=== PATIENT | female | born 1940 | race Two or more races ===

== ENCOUNTER 2017-11-07 10:01 | Emergency (ER) | payer OTHER ==
[~2017-11-07] VITALS: Ht 152.4 cm; Wt 68.9 kg
[~2017-11-07 10:01] MED LIST: ASA81 MG; ZOCOR20 MG
== END 2017-11-07 14:53 | disposition home or self-care (01) ==
LOC: ER 10:01
DX: R51 Headache (principal); M54.2 Cervicalgia

== ENCOUNTER 2018-04-03 10:35 | Outpatient (CLI) | payer OTHER | END 2018-04-03 10:37 | disposition home or self-care (01) | LOC: RAD 10:35 | DX: Z01.811 Encounter for preprocedural respiratory examination (principal) ==

== ENCOUNTER 2018-05-07 07:10 | Outpatient (CLI) | payer OTHER | END 2018-05-07 07:12 | disposition home or self-care (01) | LOC: MAMO-SONO 07:10 | DX: Z12.31 Encounter for screening mammogram for malignant neoplasm of breast (principal); Z87.898 Personal history of other specified conditions; N64.89 Other specified disorders of breast ==

== ENCOUNTER 2018-07-21 20:36 | Emergency (ER) | payer OTHER ==
[~2018-07-21] VITALS: Ht 165.1 cm; Wt 79.4 kg
== END 2018-07-22 19:15 | disposition home or self-care (01) ==
LOC: ER 20:36 → CPU-OBS 20:48 → ER 07-22 19:15
DX: I25.10 Atherosclerotic heart disease of native coronary artery without angina pectoris (principal); I16.1 Hypertensive emergency; I10 Essential (primary) hypertension; R07.89 Other chest pain; M54.2 Cervicalgia; R51 Headache

== ENCOUNTER 2018-07-28 09:13 | Outpatient (CLI) | payer OTHER | END 2018-07-28 09:20 | disposition home or self-care (01) | LOC: SONOGRAMA 09:13 | DX: R10.84 Generalized abdominal pain (principal) ==

== ENCOUNTER → 2018-12-19 | Outpatient (CLI) | payer OTHER | END | disposition home or self-care (01) | LOC: RAD 11:08 | DX: J98.11 Atelectasis (principal); R06.02 Shortness of breath ==

== ENCOUNTER 2020-09-01 10:08 | Outpatient (CLI) | payer OTHER | END 2020-09-01 10:19 | disposition home or self-care (01) | LOC: MAMO-SONO 10:08 | PROVIDERS: ATTEND Obstetrics & Gynecology | DX: Z12.31 Encounter for screening mammogram for malignant neoplasm of breast (principal); N64.4 Mastodynia ==

== ENCOUNTER 2020-09-27 07:05 | Outpatient (CLI) | payer OTHER | END 2020-09-27 07:06 | disposition home or self-care (01) | LOC: NUCLEAR 07:05 | PROVIDERS: ATTEND Internal Medicine Cardiovascular Disease | DX: M81.0 Age-related osteoporosis without current pathological fracture (principal); I20.9 Angina pectoris, unspecified | CPT/HCPCS: 78452; 93017; 77080; A9500; J0153 ==

== ENCOUNTER 2020-11-05 06:40 | Inpatient (IN) | payer OTHER ==
[~2020-11-05] VITALS: Ht 152.4 cm; Wt 64.4 kg
[2020-11-05] MEDS ORDERED: NORFLEX100MG (06:52)
[2020-11-05] MEDS ORDERED: SOLARAZE100 GM (06:53)
[2020-11-07] MEDS ORDERED: ALLERGY RELIEF25 MG (11:13)
[2020-11-07] MEDS ORDERED: [UNRECOGNIZED DRUG - OTHER] (11:13)
[2020-11-07] MEDS ORDERED: CVS CALCIUM 601 EAC3 (11:13)
[2020-11-07] MEDS ORDERED: IBUPROFEN200 M1 (11:13)
[2020-11-07] MEDS ORDERED: MELATONIN5 M2 (11:14)
[2020-11-07] MEDS ORDERED: [UNRECOGNIZED DRUG - OTHER] (11:14)
[2020-11-07] MEDS ORDERED: CORTISONE60 GM (11:14)
[2020-11-07] MEDS ORDERED: VITAMIN D350 MCG (11:14)
[2020-11-07] MEDS ORDERED: OMEGA 3-6-9 11200 M1 (11:15)
[2020-11-07] MEDS ORDERED: PRAVASTATIN SOD10 MG (11:15)
[2020-11-07] MEDS ORDERED: ANTI-DIARRHEAL2 M1 (11:15)
[2020-11-07] MEDS ORDERED: BENADRYL ITCH28.3 GM (11:16)
== END 2020-11-09 10:55 | disposition designated cancer center or children's hospital (05) | DRG 313 ==
LOC: ER 06:40 → MEDJ 17:12
PROVIDERS: ADMIT Internal Medicine; ATTEND Internal Medicine
PROC: 4A12X4Z Monitoring of Cardiac Electrical Activity, External Approach (ICD-10-PCS; principal; 2020-11-05)
DX: R07.89 Other chest pain (principal); K29.70 Gastritis, unspecified, without bleeding; Z20.822 Contact with and (suspected) exposure to COVID-19

== ENCOUNTER 2022-01-02 09:21 | Outpatient (CLI) | payer OTHER ==
[~2022-01-02 09:21] MED LIST changes: +ALLERGY RELIEF25 MG; +ANTI-DIARRHEAL2 M1; +BENADRYL ITCH28.3 GM; +CORTISONE60 GM; +CVS CALCIUM 601 EAC3; +IBUPROFEN200 M1; +MELATONIN5 M2; +NORFLEX100MG; +OMEGA 3-6-9 11200 M1; +PRAVASTATIN SOD10 MG; +SOLARAZE100 GM; +VITAMIN D350 MCG; +[UNRECOGNIZED DRUG - OTHER]; +[UNRECOGNIZED DRUG - OTHER]
== END 2022-01-02 09:33 | disposition home or self-care (01) ==
LOC: MAMO-SONO 09:21
PROVIDERS: ATTEND Obstetrics & Gynecology
DX: Z12.31 Encounter for screening mammogram for malignant neoplasm of breast (principal); N64.4 Mastodynia

== ENCOUNTER 2022-04-24 07:14 | Outpatient (CLI) | payer OTHER | END 2022-04-24 07:30 | disposition home or self-care (01) | LOC: TOM 07:14 | PROVIDERS: ATTEND Psychiatry & Neurology Clinical Neurophysiology | DX: I62.03 Nontraumatic chronic subdural hemorrhage (principal) ==

== ENCOUNTER 2022-09-14 10:57 | Emergency (ER) | payer OTHER ==
[~2022-09-14] VITALS: Ht 152.4 cm; Wt 67.1 kg
[2022-09-14] MEDS ORDERED: ANTIVERT25 M2 PO (11:19)
== END 2022-09-14 15:46 | disposition home or self-care (01) ==
LOC: ER 10:57
DX: R42 Dizziness and giddiness (principal); M19.90 Unspecified osteoarthritis, unspecified site; J45.909 Unspecified asthma, uncomplicated; Z88.2 Allergy status to sulfonamides; K29.70 Gastritis, unspecified, without bleeding

== ENCOUNTER 2023-01-03 11:28 | Outpatient (CLI) | payer OTHER ==
[~2023-01-03 11:28] MED LIST changes: +ANTIVERT25 M2 PO
== END 2023-01-03 11:33 | disposition home or self-care (01) ==
LOC: MAMO-SONO 11:28
PROVIDERS: ATTEND Obstetrics & Gynecology
DX: Z12.31 Encounter for screening mammogram for malignant neoplasm of breast (principal); N64.4 Mastodynia

== ENCOUNTER 2023-01-18 12:09 | Outpatient (CLI) | payer OTHER | END 2023-01-18 12:19 | disposition home or self-care (01) | LOC: NUCLEAR 12:09 | PROVIDERS: ATTEND Obstetrics & Gynecology | DX: M81.0 Age-related osteoporosis without current pathological fracture (principal) ==

== ENCOUNTER 2023-01-31 11:39 | Outpatient (CLI) | payer OTHER | END 2023-01-31 11:44 | disposition home or self-care (01) | LOC: RAD 11:39 | PROVIDERS: ATTEND Ophthalmology | DX: Z98.41 Cataract extraction status, right eye (principal); H25.011 Cortical age-related cataract, right eye ==

== ENCOUNTER 2023-05-10 13:51 | Emergency (ER) | payer OTHER ==
[~2023-05-10] VITALS: Ht 152.4 cm; Wt 68.0 kg
[2023-05-10 15:40] LABS: HEMOGLOBIN 13.4 g/dL (12.0-15.00); MEAN CELL VOLUME 87.6 fL (80.00-100.00); MEAN CORPUSCULAR HEMOGLOBIN 29.4 pg (27.00-32.0); MEAN CORPUSCULAR HGB CONC 33.6 g/dl (32.0-36.0); PLATELET COUNT 236 K/uL (150-450); RED BLOOD COUNT 4.56 M/uL (4.00-6.00)
[2023-05-10 15:58] LABS: CALCIUM 9.7 mg/dL (8.5-10.1); CREATININE SERUM 0.75 mg/dL (0.55-1.02); GFR 73.98; POTASSIUM 4.76 mEq/L (3.5-5.1)
[2023-05-10 16:51] LABS: PH,URINE 6.5 (5.0-8.0); URINE APPEARANCE Clear; URINE BILIRRUBIN Negative (NEGATIVE); URINE BLOOD Negative; URINE COLOR Yellow; URINE GLUCOSE Negative (NEGATIVE); URINE LEUKOCYTE Trace; URINE NITRATE Negative; URINE PROTEIN Negative (NEGATIVE); URINE UROBILINOGEN 0.2 E.U./dl
[2023-05-10 16:52] LABS: URINE EPITHELIAL CELLS 2.4 uL (0.0-38.8)
[2023-05-10 16:54] LABS: URINE BACTERIA 3.7 uL (0.0-1933); URINE RBC 0.8 uL (0.0-20.8)
[2023-05-10] MEDS ORDERED: ESTRACE42.5 GM VAG (17:07)
== END 2023-05-10 17:19 ==
LOC: ER 13:52
PROVIDERS: Nurse Practitioner Family
DX: N95.2 Postmenopausal atrophic vaginitis (principal); R30.0 Dysuria; Z88.2 Allergy status to sulfonamides; E78.49 Other hyperlipidemia

== ENCOUNTER 2023-12-25 08:26 | Outpatient (CLI) | payer OTHER ==
[~2023-12-25 08:26] MED LIST changes: +ESTRACE42.5 GM VAG
== END 2023-12-25 08:35 | disposition home or self-care (01) ==
LOC: TOM 08:26
PROVIDERS: ATTEND Psychiatry & Neurology Clinical Neurophysiology
DX: K51.90 Ulcerative colitis, unspecified, without complications (principal)

== ENCOUNTER 2024-01-07 12:16 | Outpatient (CLI) | payer OTHER | END 2024-01-07 12:27 | disposition home or self-care (01) | LOC: MAMO-SONO 12:16 | PROVIDERS: ATTEND Obstetrics & Gynecology | DX: N64.4 Mastodynia (principal); Z12.31 Encounter for screening mammogram for malignant neoplasm of breast ==

== ENCOUNTER 2024-07-08 13:18 | Outpatient (CLI) | payer OTHER | END 2024-07-08 13:26 | disposition home or self-care (01) | LOC: TOM 13:18 | PROVIDERS: ATTEND Psychiatry & Neurology Clinical Neurophysiology | DX: R51.9 Headache, unspecified (principal) ==

== ENCOUNTER 2024-08-28 13:26 | Emergency (ER) | payer OTHER ==
[~2024-08-28] VITALS: Ht 152.4 cm; Wt 63.5 kg
[2024-08-28] MEDS ORDERED: LIDOCAINE HCL 1% 10ML VIAL PERCUT ONE (14:45)
[2024-08-28] MEDS ORDERED: CEFTRIAXONE SODIUM 1,000 MG VIAL IM ONE (14:45)
[2024-08-28] MEDS ORDERED: TETANUS & DIPHTHERIA TOX,ADULT 0.5 ML VIAL IM ONE (14:45)
[2024-08-28] MEDS ORDERED: LIDOCAINE HCL 1% 10ML VIAL ONE (15:11)
[2024-08-28] MEDS ORDERED: DIPHTH,PERTUSS(ACELL),TET VAC 0.5 ML SYRINGE IM ONE (15:12)
[2024-08-28] MEDS ORDERED: CEFTRIAXONE SODIUM 1,000 MG VIAL ONE (15:12)
== END 2024-08-28 17:46 ==
LOC: ER 13:27
DX: S01.01XA Laceration without foreign body of scalp, initial encounter (principal); W10.8XXA Fall (on) (from) other stairs and steps, initial encounter; Y93.89 Activity, other specified; Y92.89 Other specified places as the place of occurrence of the external cause; Y99.9 Unspecified external cause status; Z88.2 Allergy status to sulfonamides; M51.369 Other intervertebral disc degeneration, lumbar region without mention of lumbar back pain or lower extremity pain
CPT/HCPCS: 12002; 70450; 72125; 90471; 90714; 96372; 99284; J0696; J1670

== ENCOUNTER → 2024-09-10 | Emergency (ER) | payer OTHER ==
[~2024-09-10] VITALS: Ht 152.4 cm; Wt 63.5 kg
== END | disposition home or self-care (01) ==
LOC: ER 09:20
DX: Z48.02 Encounter for removal of sutures (principal); Z88.2 Allergy status to sulfonamides

== ENCOUNTER 2025-01-11 10:30 | Outpatient (CLI) | payer OTHER | END 2025-01-11 10:44 | disposition home or self-care (01) | LOC: MAMO-SONO 10:30 | DX: N64.4 Mastodynia (principal); Z12.31 Encounter for screening mammogram for malignant neoplasm of breast ==